=== PATIENT | female | born 1995 | race Caucasian/White ===

== ENCOUNTER 2016-12-16 21:34 | Emergency (ER) | payer OTHER ==
[~2016-12-16] VITALS: Ht 170.2 cm; Wt 65.9 kg
[~2016-12-16 21:34] MED LIST: DEPO-PROVER150 MG/M1 IM
[2016-12-16 21:37] VITALS: BP 136/73; TEMP 97.7
[2016-12-16] MEDS ORDERED: FLEXERIL 1010 MG/TAB PO (23:15)
[2016-12-16 23:22] VITALS: PULSE 85
== END 2016-12-16 23:22 | disposition home or self-care (01) ==
LOC: COL.ER 21:34
DX: R07.89 Other chest pain (principal); R07.1 Chest pain on breathing
CPT/HCPCS: J2360

== ENCOUNTER 2020-11-16 11:15 | Emergency (ER) | payer OTHER ==
[~2020-11-16] VITALS: Ht 170.2 cm; Wt 77.3 kg
[~2020-11-16 11:15] MED LIST changes: +FLEXERIL 1010 MG/TAB PO
[2020-11-16 11:25] VITALS: TEMP 98.1
[2020-11-16 12:16] LABS: HEMATOCRIT 39.3 % (37.0-47.0); HEMOGLOBIN 13.5 g/dl (12.5-16.0); MEAN CELL VOLUME 83 fl (80.0-100.0); MEAN CORPUSCULAR HEMOGLOBIN 29 pg (27.0-31.0); MEAN CORPUSCULAR HGB CONC 34 g/dl (33.0-37.0); MEAN PLATELET VOLUME 9.6 fl (7.4-10.4); PLATELET COUNT 199 K/mm3 (130-400); RED BLOOD COUNT 4.73 M/mm3 (4.10-5.30); REDCELL DISTRIBUTION WIDTH-CV 11.9 % (11.5-14.5)
[2020-11-16 12:26] LABS: ALBUMIN 4.2 gm/dL (3.5-5.0); BILIRUBIN,TOTAL 0.3 mg/dL (0.0-1.0); CALCIUM 8.6 mg/dL (8.4-10.2); CREATININE, serum 0.66 (0.52-1.25); POTASSIUM 3.5 mmol/L (3.4-5.0); TOTAL PROTEIN 7.8 gm/dL (6.4-8.2)
[2020-11-16 12:32] LABS: BAND 11 % (0-10); EOSINOPHIL 1 % (0-4); LYMPHOCYTE 37 % (20.0-51.0); NEUTROPHILS 45 % (42.0-75.2); PLATELET ESTIMATE NORMAL (NORMAL)
[2020-11-16] MEDS ORDERED: ZOFRAN ODT4 MG PO (15:05)
[2020-11-16 15:38] VITALS: BP 119/73; PULSE 79
== END 2020-11-16 15:38 | disposition home or self-care (01) ==
LOC: COL.ER 11:15
PROVIDERS: Physician Assistant
DX: U07.1 COVID-19 (principal); K52.9 Noninfective gastroenteritis and colitis, unspecified; Z88.6 Allergy status to analgesic agent
CPT/HCPCS: J2405; J7030; Q9967